=== PATIENT | male | born 1975 | race Caucasian/White ===

== ENCOUNTER → 2021-04-28 08:44 | Outpatient (BNVA) | payer OTHER, SELFPAY | PROVIDERS: PCP Family Medicine; Visit Provider Urology | DX: N20.0 Calculus of kidney (principal); R82.994 Hypercalciuria | CPT/HCPCS: 81003 ==

== ENCOUNTER 2021-08-04 08:05 | Outpatient (CLI) | payer OTHER, SELFPAY ==
--- NOTE | 2021-08-04 08:15 | XR_ITS ---
WS: [id number] KUB, AP view, 08/04/2021 Clinical Data: RENAL STONES Comparison: None. Findings: No abnormal intraabdominal masses or calcifications are seen. There is no dilatated small bowel or ev idence of obstruction. There is a moderate amount of fecal material in the colon. The bladder is partly full. XR/XR KUB [id number] Impression: Negative KUB.
== END 2021-08-04 08:06 | disposition home or self-care (01) ==
PROVIDERS: PCP Family Medicine; Visit Provider Urology
DX: N20.0 Calculus of kidney (principal)
CPT/HCPCS: 74018; 81003

== ENCOUNTER → 2021-08-09 08:03 | Outpatient (BNVA) | payer OTHER, SELFPAY | PROVIDERS: PCP Family Medicine; Visit Provider Urology | DX: N20.0 Calculus of kidney (principal); N39.9 Disorder of urinary system, unspecified | CPT/HCPCS: 80048; 81003; 82131; 82140; 82340; 82436; 82507; 82570; 83735; 83935; 84100; 84300; 84550 ==

== ENCOUNTER 2021-09-01 07:38 | Outpatient (CLI) | payer OTHER, SELFPAY ==
--- NOTE | 2021-09-01 07:00 | XR_ITS ---
WS: [id number] KUB, AP view, 09/01/2021 Clinical Data: RENAL STONES Comparison: KUB, 08/04/2021. Findings: No abnormal intraabdominal masses or calcifications are seen. There is no dilatated small bowel or ev idence of obstruction. The bladder is partly full. XR/XR KUB [id number] Impression: Negative KUB.
== END 2021-09-01 07:39 | disposition home or self-care (01) ==
LOC: RAD 07:40
PROVIDERS: PCP Family Medicine; Visit Provider Urology
DX: N20.0 Calculus of kidney (principal)
CPT/HCPCS: 74018

== ENCOUNTER → 2022-01-17 08:27 | Outpatient (BNVA) | payer OTHER, SELFPAY | PROVIDERS: PCP Family Medicine; Visit Provider Nurse Practitioner Family | DX: N20.0 Calculus of kidney (principal); R82.994 Hypercalciuria; N39.9 Disorder of urinary system, unspecified | CPT/HCPCS: 80048; 81003; 82131; 82140; 82340; 82436; 82507; 82570; 83735; 83935; 84100; 84300; 84550 ==

== ENCOUNTER 2022-02-11 10:17 | Outpatient (CLI) | payer OTHER, SELFPAY ==
--- NOTE | 2022-02-11 10:27 | XR_ITS ---
WS: [id number] Exam: XR KUB [id number] Date/Time of Exam: 02/11/2022 10:41 AM Reason For Exam: stones Comparison 09/01/2021. No bowel obstruction or free air. No sign of organ enlargement. Regional bony elements appear normal. XR/XR KUB [id number] IMPRESSION: 1. Unremarkable KUB.
== END 2022-02-11 10:18 | disposition home or self-care (01) ==
LOC: RAD 10:19
PROVIDERS: PCP Family Medicine; Visit Provider Urology
DX: N20.0 Calculus of kidney (principal); R82.994 Hypercalciuria
CPT/HCPCS: 74018; 81003; 82310; 83970

== ENCOUNTER 2022-06-06 09:48 | Outpatient (CLI) | payer OTHER, SELFPAY ==
[2022-06-06 11:09] LABS: Sodium, Urine Result 143 mmol/L
[2022-06-06 11:34] LABS: Total Volume Urine 1300 ml
[2022-06-06 15:12] LABS: Calcium 24 Hour Urine 460 mg/24hr (100-300); Urine Calcium Result 35.4 mg/dL
[2022-06-06 15:13] LABS: Total Volume, Urine 1300 mL; Uric Acid 24 HR Urine 34.5 mg/24 HR (150-990)
== END 2022-06-06 09:49 | disposition home or self-care (01) ==
LOC: LAB 09:49
PROVIDERS: PCP Family Medicine; Visit Provider Urology
DX: N20.0 Calculus of kidney (principal); R82.994 Hypercalciuria
CPT/HCPCS: 36415; 82340; 84300; 84560